=== PATIENT | female | born 1970 | race Caucasian/White ===

== ENCOUNTER 2018-07-13 06:35 | Outpatient (CLI) ==
--- NOTE | 2018-07-13 08:16 | STRESS ---
Date of Test: 07/13/18 Ordering Physician: DR. 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 Reason for Exam: CHEST PAIN Smoking History: NONE Height: 64" Weight: 145 LBS Current Medications: CONTROL PILL, SYNTHROID Target Heart Rate: 145 Resting EKG: SINUS RHYTHM/ NO ACUTE CHANGES S-T SEGMENT STAGE MPH/GRADE HEART RATE BPM BLOOD PRESSURE MMHG RHYTHM +/- ELEVATION DEPRESSION SYMPTOMS AT REST 71 166/96 SR X NONE 1 1.7/10% 126 188/102 SR X NONE 2 2.5/12% 150 210/90 SR X NONE 3 3.4/14% 4 4.2/16% 5 5.0/18% Immediately After 164 SR X TARGET MET Minutes Post Exercise 1:00 135 228/98 SR X NONE Minutes Post Exercise 5:00 96 174/92 SR X NONE DURATION OF EXERCISE: 6:22 MAXIMUM HEART RATE REACHED: 164 REASON FOR TERMINATION: TARGET HR REACHED 99% OXYGEN SATURATION WITH EXERCISE METS 8.0 INTERPRETATION: 1: NO EVIDENCE OF ISCHEMIA BY ST-T WAVE 2: NO CHEST PAIN OR DISCOMFORT 3: NO ARRHYTHMIAS 4. BLOOD PRESSURE RESPONSE: HYPERTENSION AT REST AND WITH EXERCISE 5. EXERCISE TOLERANCE: NORMAL MTDD
== END 2018-07-13 06:36 | disposition home or self-care (01) ==
LOC: CAR 06:35
PROVIDERS: ATTEND Family Medicine
DX: R07.9 Chest pain, unspecified (principal)
CPT/HCPCS: 93017; 93018